=== PATIENT | female | born 2000 | race Two or more races ===

== ENCOUNTER 2021-02-03 17:14 | Emergency (ER) | payer OTHER, MEDICAID ==
[~2021-02-03] VITALS: Ht 165.1 cm; Wt 59.4 kg
[2021-02-03 17:21] VITALS: BP 118/82
== END 2021-02-03 21:00 | disposition left against medical advice (07) ==
LOC: ER 17:14
DX: K08.89 Other specified disorders of teeth and supporting structures (principal); R68.84 Jaw pain; Z53.21 Procedure and treatment not carried out due to patient leaving prior to being seen by health care provider

== ENCOUNTER 2021-08-02 11:08 | Inpatient (IN) | payer MEDICAID, OTHER ==
[~2021-08-02] VITALS: Ht 165.1 cm; Wt 64.6 kg
[2021-08-02] VITALS (12 sets, daily range): BP systolic 85–102; BP diastolic 34–47
[2021-08-02] MEDS ORDERED: FERROUS SULFATE 325mg EC TAB PO ONE (11:15)
[2021-08-02] MEDS ORDERED: SODIUM CHLORIDE 0.9% 1,000 ML IV ONE ×2 (11:15→15:30)
[2021-08-02 11:51] LABS: Basophils # (auto) 0 10 ^3/uL (0-0.2); Basophils % (auto) 0.2 % (0.0-2.0); Eosinophils # (auto) 0.1 10 ^3/uL (0-0.8); Lymphocytes # (auto) 1.2 10 ^3/uL (0.4-5.4); White Blood Cell 10.9 10^3/uL (4.4-10.8)
[2021-08-02 11:55] LABS: Eosinophils % (auto) 0.7 % (0.0-7.0); Hematocrit 21.2 % (36.0-46.0); Lymphocytes % (auto) 10.7 % (10.0-50.0); Mean Corpuscular Hemoglobin 21.9 pg (28.0-32.0); Mean Corpuscular Hgb Conc. 31.2 g/dL (32.0-36.0); Mean Corpuscular Volume 70.1 fL (80.0-100.0); Monocytes # (auto) 1.1 10 ^3/uL (0-1.3); Monocytes % (auto) 10.4 % (0.0-12.0); Neutrophils # (auto) 8.5 10 ^3/uL (1.6-8.6); Nucleated Red Blood Cells % 0.1 %; Red Blood Cells 3.03 10^6/uL (4.0-5.20)
[2021-08-02 11:57] LABS: Albumin 1.9 g/dL (3.4-5.0); BUN/Creatinine Ratio 19.5; Calcium 8.2 mg/dL (8.5-10.1)
[2021-08-02 12:00] LABS: Bilirubin, Total 1.8 mg/dL (0.2-1.0); Red Cell Distribution Width 24.8 % (11.8-14.3); Total Protein 6.7 g/dL (6.4-8.2)
[2021-08-02 12:05] LABS: Hemoglobin 6.6 g/dL (12.2-16.2)
[2021-08-02 12:07] LABS: INR 1.77 (0.9-1.15); Partial Thromboplastin Time 38.6 sec (23.6-33.0); Potassium 2.5 mmol/L (3.5-5.1)
[2021-08-02] MEDS: NOREPINEPHRINE 8 MG/250ML KIT 250 ML IV SCH ×2 (12:32→22:14)
[2021-08-02] MEDS: POTASSIUM CHL 10MEQ/50ML 50 ML IV SCH ×6 (13:07→21:56)
[2021-08-02] MEDS ORDERED: PANTOPRAZOLE 40 MG/10 ML VIAL INJ IV ONE (15:30)
[2021-08-02] MEDS ORDERED: ONDANSETRON HCL 4 MG/2 ML VIAL IV PRN (15:45)
[2021-08-02] MEDS ORDERED: TEMAZEPAM 15 MG CAP PO PRN (15:45)
[2021-08-02] MEDS ORDERED: NITROGLYCERIN 0.4 MG SL TAB SL PRN (15:45)
[2021-08-02] MEDS ORDERED: DOCUSATE SOD 100 MG CAP PO PRN (15:45)
[2021-08-02] MEDS: SODIUM CHLORIDE 0.9% 1,000 ML IV SCH ×2 (16:19→21:57)
[2021-08-02 17:01] LABS: Cholesterol < 50 mg/dL (< 200); Magnesium 2.5 mg/dL (1.6-2.6)
[2021-08-02 17:04] LABS: HDL Cholesterol 8 mg/dL (40-59); LDL Cholesterol 22 mg/dL (< 100); Phosphorus 7.2 mg/dL (2.5-4.90); Triglycerides 86 mg/dL (< 150)
[2021-08-02 17:07] LABS: Amylase 17 U/L (25-115); Lipase 41 U/L (73-393)
[2021-08-02] MEDS: PANTOPRAZOLE 40 MG/10 ML VIAL INJ IV SCH (22:14)
[2021-08-02] MEDS: MORPHINE SULFATE 4 MG/ML SYR/VIAL IV PRN (22:48)
[2021-08-02 23:10] LABS: Basophils # (auto) 0 10 ^3/uL (0-0.2); Basophils % (auto) 0.2 % (0.0-2.0); Mean Corpuscular Volume 75.7 fL (80.0-100.0); Neutrophils # (auto) 11.9 10 ^3/uL (1.6-8.6); Neutrophils % (auto) 81.1 % (37.0-80.0)
[2021-08-02 23:11] LABS: Eosinophils # (auto) 0 10 ^3/uL (0-0.8); Eosinophils % (auto) 0.3 % (0.0-7.0); Hematocrit 25.8 % (36.0-46.0); Hemoglobin 7.9 g/dL (12.2-16.2); Mean Corpuscular Hemoglobin 23.3 pg (28.0-32.0); Mean Corpuscular Hgb Conc. 30.8 g/dL (32.0-36.0); Monocytes # (auto) 1.7 10 ^3/uL (0-1.3); Monocytes % (auto) 11.4 % (0.0-12.0); White Blood Cell 14.7 10^3/uL (4.4-10.8)
[2021-08-02 23:14] LABS: Red Cell Distribution Width 25.1 % (11.8-14.3)
[2021-08-03] VITALS (80 sets, daily range): BP systolic 90–141; BP diastolic 40–77
[2021-08-03] MEDS: NOREPINEPHRINE 8 MG/250ML KIT 250 ML IV SCH ×2 (01:52→06:22)
[2021-08-03] MEDS: OCTREOTIDE ACETATE 500 MCG in SODIUM CHL 0.9% 99 ML IV SCH ×2 (02:24→13:15)
[2021-08-03 03:50] LABS: Basophils # (auto) 0 10 ^3/uL (0-0.2); Eosinophils # (auto) 0.1 10 ^3/uL (0-0.8); Hemoglobin 7.8 g/dL (12.2-16.2); Nucleated Red Blood Cells % 0.1 %; White Blood Cell 11.3 10^3/uL (4.4-10.8)
[2021-08-03 03:53] LABS: Basophils % (auto) 0.2 % (0.0-2.0); Hematocrit 24.8 % (36.0-46.0); Lymphocytes # (auto) 1.4 10 ^3/uL (0.4-5.4); Lymphocytes % (auto) 12.1 % (10.0-50.0); Mean Corpuscular Hemoglobin 23.6 pg (28.0-32.0); Mean Corpuscular Hgb Conc. 31.5 g/dL (32.0-36.0); Monocytes # (auto) 1.5 10 ^3/uL (0-1.3); Monocytes % (auto) 13.3 % (0.0-12.0); Neutrophils # (auto) 8.3 10 ^3/uL (1.6-8.6); Neutrophils % (auto) 73.4 % (37.0-80.0); Red Blood Cells 3.31 10^6/uL (4.0-5.20)
[2021-08-03 04:09] LABS: Albumin 1.5 g/dL (3.4-5.0); Calcium 7.1 mg/dL (8.5-10.1)
[2021-08-03 04:11] LABS: Total Protein 5.3 g/dL (6.4-8.2)
[2021-08-03] MEDS: MORPHINE SULFATE 4 MG/ML SYR/VIAL IV PRN ×4 (04:30→21:54)
[2021-08-03 04:42] LABS: Red Cell Distribution Width 24.1 % (11.8-14.3)
[2021-08-03] MEDS ORDERED: ALBUMIN 25% 100 ML IV ONE (09:15)
[2021-08-03] MEDS ORDERED: PHENYLEPHRINE IV 250 ML IV ONE (10:36)
[2021-08-03] MEDS ORDERED: HYDROCORTISONE SOD SUCC 100 MG/2ML INJ VIAL IV ONE (11:30)
[2021-08-03 12:05] LABS: Hemoglobin 7.3 g/dL (12.2-16.2)
[2021-08-03 12:07] LABS: Hematocrit 23.7 % (36.0-46.0)
[2021-08-03] MEDS: POTASSIUM CHL 10MEQ/50ML 50 ML IV SCH ×2 (12:15→12:27)
[2021-08-03] MEDS: PANTOPRAZOLE 40 MG/10 ML VIAL INJ IV SCH ×2 (12:26→21:50)
[2021-08-03] MEDS ORDERED: OCTREOTIDE ACETATE 100 MCG in SODIUM CHL 0.9% 50 ML IV ONE (13:15)
[2021-08-03] MEDS: SODIUM FERR GLUC 62.5MG/5ML 125 MG in SODIUM CHL 0.9% 100 ML IV SCH (13:24)
[2021-08-03] MEDS ORDERED: CEFEPIME 1 GM in SODIUM CHL 0.9% 50 ML IV SCH (14:00)
[2021-08-03] MEDS ORDERED: metroNIDAZOLE 500MG/100ML 100 ML IV SCH (14:00)
[2021-08-03] MEDS ORDERED: OMNIPAQUE ORAL SOLN 500ml 12mg/ml PO ONE (14:00)
[2021-08-03] MEDS ORDERED: LIDOCAINE 1% (LOCAL ANESTH.) PF 5ml SDV ID ONE (15:30)
[2021-08-03] MEDS: SODIUM CHLORIDE 0.9% 1,000 ML IV SCH ×2 (17:34→21:45)
[2021-08-03] MEDS ORDERED: POTASSIUM CHL 10MEQ/50ML 50 ML IV SCH (17:45)
[2021-08-03 18:17] LABS: Alcohol, Urine < 3.0 mg/dL (0-10); Amphetamine Screen, Urine NEGATIVE (NEGATIVE); Barbiturate Scree,Urine NEGATIVE (NEGATIVE); Benzodiazephine Screen, Urine NEGATIVE (NEGATIVE); Cannabinoid Screen, Urine NEGATIVE (NEGATIVE); Opiate Scree,Urine POSITIVE (NEGATIVE); Phencyclidine Screen, Urine NEGATIVE (NEGATIVE)
[2021-08-03 18:18] LABS: Protein, Urine 30.5 mg/dL (0.0-11.9)
[2021-08-03 18:25] LABS: Cocaine Screen, Urine NEGATIVE (NEGATIVE)
[2021-08-03 18:40] LABS: Urine Bacteria NONE SEEN /hpf (None Seen); Urine Blood 2+ /uL (Negative); Urine Specific Gravity 1.013 (1.001-1.035); Urine WBC 23 /hpf (0 - 5)
[2021-08-03] MEDS: PHENYLEPHRINE IV 250 ML IV SCH ×2 (19:00→19:30)
[2021-08-03] MEDS: metroNIDAZOLE 500MG/100ML 100 ML IV SCH (20:23)
[2021-08-03] MEDS: CEFEPIME 1 GM in SODIUM CHL 0.9% 50 ML IV SCH (21:00)
[2021-08-03] MEDS: SODIUM CHLOR 0.9% PF (SALINE LOCK) 10ML VIAL/SYR IV SCH (21:50)
[2021-08-03] MEDS: HYDROCORTISONE SOD SUCC 100 MG/2ML INJ VIAL IV SCH (21:51)
[2021-08-04] VITALS (69 sets, daily range): BP systolic 94–130; BP diastolic 51–84
[2021-08-04 00:46] LABS: Hematocrit 22.6 % (36.0-46.0); Hemoglobin 7.3 g/dL (12.2-16.2)
[2021-08-04] MEDS: MORPHINE SULFATE 4 MG/ML SYR/VIAL IV PRN ×2 (01:54→06:16)
[2021-08-04] MEDS: PHENYLEPHRINE IV 250 ML IV SCH (03:10)
[2021-08-04] MEDS: metroNIDAZOLE 500MG/100ML 100 ML IV SCH ×3 (04:00→20:13)
[2021-08-04 04:12] LABS: Calcium 7.8 mg/dL (8.5-10.1); Potassium 3.6 mmol/L (3.5-5.1)
[2021-08-04 04:16] LABS: BUN/Creatinine Ratio 33.3
[2021-08-04] MEDS: CEFEPIME 1 GM in SODIUM CHL 0.9% 50 ML IV SCH ×3 (05:11→22:35)
[2021-08-04] MEDS: SODIUM CHLORIDE 0.9% 1,000 ML IV SCH (06:39)
[2021-08-04 06:46] LABS: Basophils # (auto) 0 10 ^3/uL (0-0.2); Basophils % (auto) 0.4 % (0.0-2.0); Eosinophils # (auto) 0 10 ^3/uL (0-0.8); Eosinophils % (auto) 0.1 % (0.0-7.0); Hematocrit 22.9 % (36.0-46.0); Hemoglobin 7.2 g/dL (12.2-16.2); Lymphocytes # (auto) 0.3 10 ^3/uL (0.4-5.4); Lymphocytes % (auto) 10.3 % (10.0-50.0); Mean Corpuscular Hemoglobin 25.2 pg (28.0-32.0); Mean Corpuscular Hgb Conc. 31.6 g/dL (32.0-36.0); Mean Corpuscular Volume 79.8 fL (80.0-100.0); Monocytes # (auto) 0.2 10 ^3/uL (0-1.3); Monocytes % (auto) 7.7 % (0.0-12.0); Neutrophils % (auto) 81.5 % (37.0-80.0); Nucleated Red Blood Cells % 0.2 %; Red Blood Cells 2.86 10^6/uL (4.0-5.20); White Blood Cell 2.4 10^3/uL (4.4-10.8)
[2021-08-04 06:48] LABS: Red Cell Distribution Width 22.4 % (11.8-14.3)
[2021-08-04] MEDS: SODIUM CHLOR 0.9% PF (SALINE LOCK) 10ML VIAL/SYR IV SCH ×2 (09:31→22:21)
[2021-08-04] MEDS: HYDROCORTISONE SOD SUCC 100 MG/2ML INJ VIAL IV SCH ×2 (09:31→22:21)
[2021-08-04] MEDS: PANTOPRAZOLE 40 MG/10 ML VIAL INJ IV SCH ×2 (09:31→22:21)
[2021-08-04] MEDS: OCTREOTIDE ACETATE 500 MCG in SODIUM CHL 0.9% 99 ML IV SCH ×2 (11:07→20:13)
[2021-08-04] MEDS: SODIUM FERR GLUC 62.5MG/5ML 125 MG in SODIUM CHL 0.9% 100 ML IV SCH (12:02)
[2021-08-04] MEDS: VANCOMYCIN HCL 125MG/5ML ORAL SOL PO SCH (17:45)
[2021-08-05] VITALS (8 sets, daily range): BP systolic 89–134; BP diastolic 53–86
[2021-08-05] MEDS: VANCOMYCIN HCL 125MG/5ML ORAL SOL PO SCH ×4 (00:26→18:40)
[2021-08-05] MEDS: metroNIDAZOLE 500MG/100ML 100 ML IV SCH ×3 (03:22→21:52)
[2021-08-05] MEDS: OCTREOTIDE ACETATE 500 MCG in SODIUM CHL 0.9% 99 ML IV SCH (04:14)
[2021-08-05] MEDS: CEFEPIME 1 GM in SODIUM CHL 0.9% 50 ML IV SCH ×3 (04:28→21:52)
[2021-08-05 05:44] LABS: Basophils # (auto) 0 10 ^3/uL (0-0.2); Eosinophils # (auto) 0 10 ^3/uL (0-0.8); Monocytes # (auto) 0.1 10 ^3/uL (0-1.3); Neutrophils # (auto) 1.6 10 ^3/uL (1.6-8.6)
[2021-08-05 05:45] LABS: Basophils % (auto) 0.2 % (0.0-2.0); Hematocrit 21.7 % (36.0-46.0); Lymphocytes # (auto) 0.3 10 ^3/uL (0.4-5.4); Lymphocytes % (auto) 13.1 % (10.0-50.0); Mean Corpuscular Hemoglobin 26.2 pg (28.0-32.0); Mean Corpuscular Hgb Conc. 32.3 g/dL (32.0-36.0); Mean Corpuscular Volume 81.1 fL (80.0-100.0); Monocytes % (auto) 5.5 % (0.0-12.0); Neutrophils % (auto) 81.2 % (37.0-80.0); Nucleated Red Blood Cells % 0.8 %; Red Blood Cells 2.67 10^6/uL (4.0-5.20)
[2021-08-05 05:50] LABS: INR 1.86 (0.9-1.15); Potassium 3.2 mmol/L (3.5-5.1)
[2021-08-05 05:57] LABS: Albumin 1.8 g/dL (3.4-5.0); BUN/Creatinine Ratio 26.9; Calcium 7.8 mg/dL (8.5-10.1)
[2021-08-05 06:00] LABS: Bilirubin, Total 0.7 mg/dL (0.2-1.0)
[2021-08-05 06:42] LABS: Red Cell Distribution Width 21.9 % (11.8-14.3); White Blood Cell 1.9 10^3/uL (4.4-10.8)
[2021-08-05] MEDS ORDERED: FUROSEMIDE 40 MG/4 ML VIAL IV ONE (08:30)
[2021-08-05] MEDS: SODIUM CHLOR 0.9% PF (SALINE LOCK) 10ML VIAL/SYR IV SCH ×2 (10:32→21:52)
[2021-08-05] MEDS: HYDROCORTISONE SOD SUCC 100 MG/2ML INJ VIAL IV SCH ×2 (10:32→21:53)
[2021-08-05] MEDS: SODIUM FERR GLUC 62.5MG/5ML 125 MG in SODIUM CHL 0.9% 100 ML IV SCH (12:06)
[2021-08-05 13:26] LABS: Hepatitis B Surface Antibody Positive (Negative)
[2021-08-05 13:50] LABS: Hepatitis A Total Antibody Positive (Negative)
[2021-08-05 15:03] LABS: Hepatitis C Antibody Negative (Negative)
[2021-08-05 16:06] LABS: Albumin 1.9 g/dL (3.4-5.0); BUN/Creatinine Ratio 21.3; Calcium 7.6 mg/dL (8.5-10.1); Potassium 3.5 mmol/L (3.5-5.1)
[2021-08-05 16:15] LABS: Bilirubin, Total 0.7 mg/dL (0.2-1.0); Total Protein 5.2 g/dL (6.4-8.2)
[2021-08-06] MEDS: VANCOMYCIN HCL 125MG/5ML ORAL SOL PO SCH ×4 (00:12→18:00)
[2021-08-06] MEDS: metroNIDAZOLE 500MG/100ML 100 ML IV SCH ×2 (04:33→12:28)
[2021-08-06 05:00] VITALS: BP 160/57
[2021-08-06] MEDS: CEFEPIME 1 GM in SODIUM CHL 0.9% 50 ML IV SCH ×2 (05:00→14:50)
[2021-08-06 06:43] LABS: Potassium 3.1 mmol/L (3.5-5.1)
[2021-08-06 06:50] LABS: BUN/Creatinine Ratio 20.5; Calcium 7.7 mg/dL (8.5-10.1)
[2021-08-06 07:27] LABS: Basophils # (auto) 0 10 ^3/uL (0-0.2); Eosinophils # (auto) 0 10 ^3/uL (0-0.8); Hematocrit 26.4 % (36.0-46.0); Lymphocytes # (auto) 0.2 10 ^3/uL (0.4-5.4); Monocytes # (auto) 0.1 10 ^3/uL (0-1.3)
[2021-08-06 07:28] LABS: Hemoglobin 8.9 g/dL (12.2-16.2); Lymphocytes % (auto) 9.8 % (10.0-50.0); Mean Corpuscular Hemoglobin 28.1 pg (28.0-32.0); Mean Corpuscular Hgb Conc. 33.6 g/dL (32.0-36.0); Mean Corpuscular Volume 83.7 fL (80.0-100.0); Neutrophils % (auto) 87.2 % (37.0-80.0); Nucleated Red Blood Cells % 1.5 %; Red Blood Cells 3.15 10^6/uL (4.0-5.20); Red Cell Distribution Width 22.5 % (11.8-14.3); White Blood Cell 2.2 10^3/uL (4.4-10.8)
[2021-08-06] MEDS ORDERED: POTASSIUM CHL 20 Meq TABLET PO ONE (08:30)
[2021-08-06 09:16] VITALS: BP 147/85
[2021-08-06] MEDS: SODIUM CHLOR 0.9% PF (SALINE LOCK) 10ML VIAL/SYR IV SCH (10:11)
[2021-08-06] MEDS: HYDROCORTISONE SOD SUCC 100 MG/2ML INJ VIAL IV SCH (10:11)
[2021-08-06] MEDS ORDERED: FILGRASTIM (TBO) 300 MCG/0.5 ML SYRG SC SCH (10:30)
[2021-08-06] MEDS ORDERED: VANC250PO PO (11:27)
[2021-08-06] MEDS ORDERED: AZIT500T PO (11:27)
[2021-08-06] MEDS ORDERED: PRED20TA2 PO (11:27)
[2021-08-06 12:00] VITALS: BP 139/58
[2021-08-06] MEDS ORDERED: Ensure HIGH Protein Chocolate 8oz Bottle PO SCH (12:00)
[2021-08-06] MEDS: SODIUM FERR GLUC 62.5MG/5ML 125 MG in SODIUM CHL 0.9% 100 ML IV SCH (12:28)
[2021-08-06 15:15] VITALS: BP 96/52
[2021-08-06 17:12] VITALS: BP 139/86
== END 2021-08-06 18:05 | disposition home health service (06) | DRG 245 ==
LOC: ER 11:08 → TELE 15:32 → ICU WEST 20:25 → TELE-CENTR 08-04 17:32
PROVIDERS: ADMIT Registered Nurse; ATTEND Internal Medicine
PROC: 30233N1 Transfusion of Nonautologous Red Blood Cells into Peripheral Vein, Percutaneous Approach (ICD-10-PCS; principal; 2021-08-02)
PROC: 05HC33Z Insertion of Infusion Device into Left Basilic Vein, Percutaneous Approach (ICD-10-PCS; 2021-08-02)
PROC: B54NZZA Ultrasonography of Left Upper Extremity Veins, Guidance (ICD-10-PCS; 2021-08-02)
PROC: 02HV33Z Insertion of Infusion Device into Superior Vena Cava, Percutaneous Approach (ICD-10-PCS; 2021-08-03)
PROC: B548ZZA Ultrasonography of Superior Vena Cava, Guidance (ICD-10-PCS; 2021-08-03)
PROC: 30233K1 Transfusion of Nonautologous Frozen Plasma into Peripheral Vein, Percutaneous Approach (ICD-10-PCS; 2021-08-03)
PROC: 30233R1 Transfusion of Nonautologous Platelets into Peripheral Vein, Percutaneous Approach (ICD-10-PCS; 2021-08-04)
DX: K51.919 Ulcerative colitis, unspecified with unspecified complications (principal); R57.8 Other shock; N17.0 Acute kidney failure with tubular necrosis; D61.818 Other pancytopenia; E43 Unspecified severe protein-calorie malnutrition; A04.72 Enterocolitis due to Clostridium difficile, not specified as recurrent; D68.9 Coagulation defect, unspecified; D69.6 Thrombocytopenia, unspecified; I95.9 Hypotension, unspecified; K76.6 Portal hypertension; K74.60 Unspecified cirrhosis of liver; Z20.822 Contact with and (suspected) exposure to COVID-19; E87.1 Hypo-osmolality and hyponatremia; D62 Acute posthemorrhagic anemia; E88.09 Other disorders of plasma-protein metabolism, not elsewhere classified; K51.90 Ulcerative colitis, unspecified, without complications; N18.4 Chronic kidney disease, stage 4 (severe); E87.6 Hypokalemia; R42 Dizziness and giddiness; E86.9 Volume depletion, unspecified; E87.8 Other disorders of electrolyte and fluid balance, not elsewhere classified; K75.4 Autoimmune hepatitis; J98.2 Interstitial emphysema; Z81.8 Family history of other mental and behavioral disorders; Z82.5 Family history of asthma and other chronic lower respiratory diseases; Z94.4 Liver transplant status; Z68.21 Body mass index [BMI] 21.0-21.9, adult
CPT/HCPCS: 36415; 36430; 36569; 71045; 71250; 74176; 80048; 80053; 80061; 80158; 80307; 81001; 82105; 82150; 82570; 83690; 83735; 84100; 84156; 84702; 85014; 85018; 85025; 85045; 85610; 85652; 85730; 86160; 86704; 86706; 86708; 86803; 86850; 86880; 86900; 86901; 86920; 87045; 87081; 87340; 87427; 87493; 96361; 96365; 96375; 99291; C9113; G0378; J1447; J3490; P9047

== ENCOUNTER 2021-08-07 09:59 | Emergency (ER) | payer MEDICAID ==
[~2021-08-07] VITALS: Ht 165.1 cm; Wt 63.0 kg
[~2021-08-07 09:59] MED LIST: AZIT500T PO; PRED20TA2 PO; VANC250PO PO
[2021-08-07 10:20] VITALS: BP 95/57
== END 2021-08-07 10:24 | disposition left against medical advice (07) ==
LOC: ER 09:59
DX: M54.9 Dorsalgia, unspecified (principal); Z53.21 Procedure and treatment not carried out due to patient leaving prior to being seen by health care provider